=== PATIENT | male | born 1975 | race Caucasian/White ===

== ENCOUNTER 2023-07-14 08:04 | Outpatient (CLI) | payer BC, SELFPAY | END 2023-07-14 08:05 | disposition home or self-care (01) | LOC: NFLDREF 07-15 14:13 | PROVIDERS: PCP Family Medicine; Visit Provider Family Medicine | DX: Z13.6 Encounter for screening for cardiovascular disorders (principal); Z13.1 Encounter for screening for diabetes mellitus | CPT/HCPCS: 80061; 82947 ==

== ENCOUNTER 2023-07-21 14:28 | Outpatient (CLI) | payer BC, SELFPAY | END 2023-07-21 14:29 | disposition home or self-care (01) | PROVIDERS: PCP Family Medicine; Visit Provider Family Medicine | DX: Z00.00 Encounter for general adult medical examination without abnormal findings (principal); R94.6 Abnormal results of thyroid function studies | CPT/HCPCS: 84439; 84443 ==

== ENCOUNTER 2023-07-22 07:18 | Outpatient (CLI) | payer BC, SELFPAY | END 2023-07-22 07:19 | disposition home or self-care (01) | LOC: NFLDREF 07:18 | PROVIDERS: PCP Family Medicine; Visit Provider Family Medicine | DX: Z00.00 Encounter for general adult medical examination without abnormal findings (principal); R21 Rash and other nonspecific skin eruption; R94.6 Abnormal results of thyroid function studies; L98.9 Disorder of the skin and subcutaneous tissue, unspecified | CPT/HCPCS: 80053 ==

== ENCOUNTER 2023-08-20 13:54 | Outpatient (CLI) | payer BC, SELFPAY | END 2023-08-20 13:55 | disposition home or self-care (01) | PROVIDERS: PCP Family Medicine; Visit Provider Family Medicine | DX: R01.1 Cardiac murmur, unspecified (principal) | CPT/HCPCS: 93306 ==

== ENCOUNTER 2023-09-10 15:08 | Outpatient (CLI) | payer BC, SELFPAY | END 2023-09-10 15:09 | disposition home or self-care (01) | LOC: NFLDREF 09-14 21:36 | PROVIDERS: PCP Family Medicine; Referring Provider Family Medicine; Visit Provider Family Medicine | DX: R21 Rash and other nonspecific skin eruption (principal); E03.9 Hypothyroidism, unspecified; R53.83 Other fatigue | CPT/HCPCS: 80053; 84439; 84443 ==

== ENCOUNTER 2023-10-28 15:15 | Outpatient (CLI) | payer BC, SELFPAY | END 2023-10-28 15:16 | disposition home or self-care (01) | LOC: NFLDREF 10-29 08:20 | PROVIDERS: PCP Family Medicine; Referring Provider Family Medicine; Visit Provider Family Medicine | DX: D64.9 Anemia, unspecified (principal); E03.9 Hypothyroidism, unspecified | CPT/HCPCS: 82728; 84439; 84443 ==

== ENCOUNTER 2024-01-24 16:30 | Outpatient (CLI) | payer OTHER, SELFPAY | END 2024-01-24 16:31 | disposition home or self-care (01) | LOC: NFLDREF 01-28 08:57 | PROVIDERS: PCP Family Medicine; Visit Provider Family Medicine | DX: E03.9 Hypothyroidism, unspecified (principal); D64.9 Anemia, unspecified | CPT/HCPCS: 82728; 84439; 84443 ==

== ENCOUNTER 2024-03-20 16:02 | Outpatient (CLI) | payer OTHER, SELFPAY | END 2024-03-20 16:03 | disposition home or self-care (01) | LOC: NFLDREF 16:04 | PROVIDERS: PCP Family Medicine; Visit Provider Family Medicine | DX: E03.9 Hypothyroidism, unspecified (principal) | CPT/HCPCS: 84439; 84443 ==

== ENCOUNTER 2024-06-20 07:48 | Outpatient (CLI) | payer OTHER, SELFPAY | END 2024-06-20 07:49 | disposition home or self-care (01) | PROVIDERS: PCP Family Medicine; Visit Provider Family Medicine | DX: D64.9 Anemia, unspecified (principal); E03.9 Hypothyroidism, unspecified | CPT/HCPCS: 84439; 84443 ==